=== PATIENT | female | born 1940 | race Caucasian/White ===

== ENCOUNTER 2017-05-10 08:27 | Inpatient (IN) | payer MEDICARE ==
[~2017-05-10] VITALS: Ht 165.1 cm; Wt 73.2 kg
[~2017-05-10 08:27] MED LIST: CRESTOR10 MG/TAB PO; FUROSEMIDE20 M1 PO; LEVOTHYROXINE75 MC3 PO; MELOXICAM15 M1 PO; OMEPRAZOLE20 M3 PO; VITAMIN D250000 UNI1 PO; VITAMIN D50000 UNI2 PO
[2017-05-11 05:54] LABS: HCT-HEMATOCRIT 30.8 % (34.0-49.0); HGB-HEMOGLOBIN 10.3 gm/dl (12.0-15.5); IMMATURE GRANULOCYTES ABSOLUTE 0.03 tho/cmm (0-0.03); IMMATURE GRANULOCYTES PERCENT 0.3 % (0-0.3); MCH (MEAN CORPUSCULAR HGB) 30.7 pg (28.0-32.0); MCHC MEAN CORPUSCULAR HGB CONC 33.4 % (32.0-36.0); MCV (MEAN CELL VOLUME) 91.7 fl (82.0-96.0); MEAN PLATELET VOLUME 10.8 cmc (9.4-12.4); MONO % 8.8 % (0-12); MONOCYTE ABSOLUTE COUNT 0.9 tho/cmm (0.0-1.2); NEUTROPHIL ABSOLUTE COUNT 8.3 tho/cmm (1.6-8.0); NEUTROPHIL-AUTOMATED 8.3 tho/cmm (1.6-8.0); NEUTROPHILS % 80.9 % (40-80); PLATELET COUNT 208 tho/cmm (150-450); RED BLOOD COUNT 3.36 mil/cmm (4.00-5.20); RED CELL DISTRIBUTION WIDTH 13.4 % (12.4-16.4); WHITE BLOOD COUNT 10.3 tho/cmm (4.0-10.0)
[2017-05-11 06:05] LABS: ANION GAP 11 mmol/L (0-20); BLOOD UREA NITROGEN 17 mg/dl (6-24); CALCIUM 8.5 mg/dl (8.5-10.5); CARBON DIOXIDE-VENOUS 26 mmol/L (22-32); CHLORIDE 110 mmol/l (96-110); CREATININE 0.84 mg/dl (0.50-1.10); GLUCOSE 132 mg/dL (70-110); SODIUM 143 mmol/L (135-145); eGFR VALUE FOR BLACK 79 mL/Min
[2017-05-12 05:54] LABS: HGB-HEMOGLOBIN 10.1 gm/dl (12.0-15.5); PLATELET COUNT 181 tho/cmm (150-450)
[2017-05-14 04:13] LABS: HGB-HEMOGLOBIN 10.6 gm/dl (12.0-15.5); PLATELET COUNT 188 tho/cmm (150-450)
[2017-05-15] MEDS ORDERED: SENOKOT-S TABL1 EACH PO (10:54)
[2017-05-15] MEDS ORDERED: VALIUM5 M1 PO (10:56)
[2017-05-15] MEDS ORDERED: BUTALBIT-ACETA1 EAC1 PO (10:56)
[2017-05-15] MEDS ORDERED: ROBAXIN500 M1 PO (10:57)
[2017-05-15] MEDS ORDERED: PERCOCET 5-3251 EACH PO (10:57)
[2017-05-15] MEDS ORDERED: CALCIUM 500 +1 EA11 PO (10:58)
[2017-05-15] MEDS ORDERED: DULCOLAX10 MG PO (10:59)
[2017-05-15] MEDS ORDERED: MIRALAX17 G2 PO (11:00)
== END 2017-05-15 14:00 | DRG 520 ==
LOC: SHSB 08:27 → CARE 09:00 → ORE 11:02 → PACU 16:14 → 5EB 17:25
PROVIDERS: ADMIT Neurological Surgery
PROC: 00NY0ZZ Release Lumbar Spinal Cord, Open Approach (ICD-10-PCS; principal; 2017-05-10)
DX: M43.16 Spondylolisthesis, lumbar region (principal); M54.16 Radiculopathy, lumbar region
CPT/HCPCS: C1713; J1170; J1650; J3010; J3370